=== PATIENT | male | born 1945 | race Two or more races ===

== ENCOUNTER 2018-09-25 09:42 | Outpatient (CLI) | payer OTHER | END 2018-09-25 09:58 | disposition home or self-care (01) | LOC: RAD 09:42 | DX: M54.5 Low back pain (principal) | CPT/HCPCS: 72148 ==

== ENCOUNTER 2018-09-25 11:36 | Outpatient (CLI) | payer OTHER | END 2018-09-25 11:54 | disposition home or self-care (01) | LOC: RAD 501 11:36 | DX: M54.5 Low back pain (principal) ==